=== PATIENT | female | born 1965 | race Caucasian/White ===

== ENCOUNTER → 2021-03-21 14:13 | Outpatient (BNVA) | payer MEDICAID, SELFPAY | PROVIDERS: Family Provider Family Medicine; PCP Family Medicine; Referring Provider Family Medicine; Visit Provider Specialist | DX: M25.519 Pain in unspecified shoulder (principal); S42.021A Displaced fracture of shaft of right clavicle, initial encounter for closed fracture; X58.XXXA Exposure to other specified factors, initial encounter | CPT/HCPCS: 73030 ==

== ENCOUNTER 2021-04-15 13:24 | Outpatient (CLI) | payer MEDICAID, SELFPAY ==
--- NOTE | 2021-04-15 13:45 | MR_ITS ---
WS: [id number] MRI RIGHT SHOULDER NONCONTRAST TECHNIQUE: Sagittal T2, coronal T1, T2 and proton density imaging. Axial gradient PDE imaging. CLINICAL INFORMATION: M25.519 - Pain in unspecified shoulder COMPARISON: None. FINDINGS: Chronic displaced right midshaft clavicular fracture. This has a chronic appearance. Degenerative bon e marrow edema involving the right humerus. Moderate joint effusion. Mild degenerative arthritis AC j oint with moderate downsloping acromion. Loss of the subacromial space with slight subacromial spurri ng. Subacromial and subdeltoid fluid. High-grade full-thickness tear involving the distal supraspinatus with retraction to the level of the glenohumeral joint. This is likely chronic. Chronic thinning of the infraspinatus which is intact di wilfred. Atrophic but intact teres minor. Chronic full-thickness tear of the subscapularis. Advanced degenerative changes glenohumeral joint. D egenerative cystic changes involving the humeral head and greater tuberosity. Biceps tendon is absent from the bicipital groove. Intra-articular biceps tendon not well visualized likely chronically torn . Subcoracoid effusion. Normal bone marrow signal in the glenoid. MR/MR shoulder RT wo con* [id number] IMPRESSION: 1. Chronic mid shaft clavicular fracture as seen on the recent radiograph 2. Full-thickness tears of the supraspinatus and subscapularis. 3. Chronic atrophy of the infraspinatus and teres minor which appear intact. 4. Moderate joint effusion. Subacromial subdeltoid effusion. Subcoracoid bursa l effusion. 5. Advanced degenerative changes glenohumeral joint. Mild degenerative change at the AC joint with loss of the subacromial space. 6. Biceps tendon is absent from the bicipital groove presumably chronically to rn.
== END 2021-04-15 13:25 | disposition home or self-care (01) ==
PROVIDERS: Family Provider Family Medicine; PCP Family Medicine; Visit Provider Specialist
DX: M25.511 Pain in right shoulder (principal); S42.021A Displaced fracture of shaft of right clavicle, initial encounter for closed fracture; M75.101 Unspecified rotator cuff tear or rupture of right shoulder, not specified as traumatic; M25.411 Effusion, right shoulder; X58.XXXA Exposure to other specified factors, initial encounter
CPT/HCPCS: 73221

== ENCOUNTER → 2021-06-16 07:58 | Outpatient (BNVA) | payer MEDICAID, SELFPAY | PROVIDERS: Family Provider Family Medicine; PCP Family Medicine; Visit Provider Specialist | DX: S42.021K Displaced fracture of shaft of right clavicle, subsequent encounter for fracture with nonunion (principal); G56.91 Unspecified mononeuropathy of right upper limb; F17.210 Nicotine dependence, cigarettes, uncomplicated; Y93.9 Activity, unspecified | CPT/HCPCS: 95907; 95910 ==

== ENCOUNTER 2021-08-16 15:56 | Emergency (ER) | payer MEDICAID, SELFPAY ==
[2021-08-16 16:08] VITALS: BP 124/86; PULSE 73; RESP 18; TEMP 36.4; O2SAT 99
[2021-08-16 18:06] VITALS: BP 123/90; PULSE 70; TEMP 36.6; O2SAT 98
--- NOTE | 2021-08-16 18:08 | ED_ITS ---
HPI - Back Pain/Injury General: Chief Complaint: Back Pain/Injury Stated Complaint: LOW BACK PAIN - L HIP AREA Time Seen by Provider: 08/16/21 18:08 History of Present Illness: HPI Narrative: 55-year-old female comes in today with complaints of low back pain. Patient states that she has pain that seems to bounce back and forth between the left side and the right side of her lower back. Patient uses ibuprofen daily to help with her pain. Patient appears w ell. Patient appears in no acute distress. Patient has some allergies to morphine, Novocain, and sulfa drugs. Patient has a history of neuropathy, rotator cuff injury, and some mental health issues including alcohol substance abuse. Patient denies any falls or injuries. Review of Systems General: Reports: 10 or more systems reviewed and unremarkable except in HPI and below Musc: Reports: back pain PFSH ED PFSH: Family History Mother Cancer Father CAD (coronary artery disease) Lung disease Cancer Social History Smoking and tobacco status: current every day smoker cigarettes Quit status (tobacco): not considering quitting Alcohol intake: former Year of sobriety/quit date alcohol: 2020 Desire information about alcohol rehabilitation?: No Physical Exam Const: COMMON NORMALS: no acute distress and patient oriented x3 GENERAL APPEARANCE: cooperative HENMT: COMMON NORMALS: normocephalic HEAD & SCALP: normal to inspection and normocephalic Eye: GENERAL EYE: appearance normal, both eyes and all related structures Neck/C-Spine: COMMON NORMALS: full ROM Chest: COMMONS NORMALS: normal inspection of the chest Resp: COMMON NORMALS: normal respiratory effort EFFORT & INSPECTION: Yes able to speak in complete sentences Cardio: COMMON NORMALS: regular rate and regular rhythm RATE: regular rate RHYTHM: regular rhythm GI: COMMON NORMALS: non-tender : COMMON NORMALS: Yes no CVA tenderness BLADDER/KIDNEY EXAM: Yes no CVA tenderness Back/Pelvis: COMMON NORMALS: no CVA tenderness THORACIC SPINE/UPPER BACK: Yes normal to inspection LUMBAR SPINE/LOWER BACK: Yes paraspinal muscle tenderness Lumbar paraspinal muscle tenderness: bilateral Extremity: COMMON NORMALS: normal to inspection Neuro: COMMON NORMALS: patient oriented x3 and moves all extremities Psych: COMMON NORMALS: mental status grossly normal and cooperative Skin: COMMON NORMALS: no rashes or lesions noted GENERAL SKIN EXAM: no rashes or lesions noted Course Vital Signs: Vital signs: Vital Signs Temperature 97.8 F 08/16/21 18:06 Pulse Rate 70 08/16/21 18:06 Respiratory Rate 18 08/16/21 16:08 Blood Pressure 123/90 08/16/21 18:06 Pulse Oximetry 98 08/16/21 18:06 MDM - Back Pain/Injury MDM Narrative: Medical decision making narrative: 55-year-old female comes in today with complaints of lower back pain. On exam patient has tenderness in the bilateral lower back. No central line lumbar spine pain is noted on palpation. Vital signs are normal. No signs of cauda equina syndrome is noted. Differential diagnosis includes intervertebral disc disease, facet arthropathy, lumbar strain. Reviewed exam with patient with recommendations for treatment. Will place her on 20 mg of prednisone twice a day for the next 3 days. Patient also be placed on some tizanidine to help with muscle spasms and back pain. Patient can use acetaminophen and ibuprofen for further pain control. Recommended patient follow-up with primary care for further instruction. Recommend patient return to the ER for worsening symptoms or new concerns. Discharge Plan Discharge Patient Disposition: Home Clinical Impression: Low back pain Qualifiers: Chronicity: acute Back pain laterality: unspecified Sciatica presence: without sciatica Qualified Code(s): M54.5 - Low back pain Condition: Stable Prescriptions: New tizanidine 4 mg tablet 4 mg PO Q6H PRN (Reason: muscle spasticity and back pain) Qty: 14 RF: 0 prednisone 20 mg tablet 20 mg PO BID 3 Days Qty: 6 RF: 0 No Action Vivitrol 380 mg suspension,extended rel recon IM RF: 0 amitriptyline 10 mg tablet 10 mg PO DAILY RF: 0 donepezil [Aricept] 10 mg tablet 10 mg PO DAILY RF: 0 meloxicam 15 mg tablet 15 mg PO DAILY Qty: 30 RF: 0 citalopram [Celexa] 40 mg tablet 40 mg PO DAILY RF: 0 olanzapine [Zyprexa] 20 mg tablet 20 mg PO DAILY RF: 0 Discharge Orders: Discharge ED (Routine); Ordered 08/16/21 Ordered By: Jonatan Martinez Referrals: Roberto Murillo MD [Primary Care Provider] - Discharge Diet: Usual diet Discharge Activity: Increase activity as tolerated Patient Instructions: Low Back Strain (ED), Opioid Safety Activity Restrictions/Additional Instructions: Take medication as directed. Use tizanidine every 6 hours for muscle spasms and pain. Use prednisone 20 mg twice a day for next 3 days for inflammation. Use acetaminophen for further pain control. Continue with ibuprofen for pain and inflammation. Drink plenty of water with medication. Follow-up with primary care in 3 days for recheck. Return to the ER for new concerns. 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
== END 2021-08-16 18:22 | disposition home or self-care (01) ==
PROVIDERS: Emergency Provider Nurse Practitioner Family; PCP Family Medicine
DX: M54.5 Low back pain (principal); F17.210 Nicotine dependence, cigarettes, uncomplicated
CPT/HCPCS: 99282

== ENCOUNTER → 2021-09-14 08:09 | Outpatient (BNVA) | payer MEDICAID, SELFPAY | PROVIDERS: PCP Family Medicine; Visit Provider Specialist | DX: G56.91 Unspecified mononeuropathy of right upper limb (principal); G56.21 Lesion of ulnar nerve, right upper limb; M19.011 Primary osteoarthritis, right shoulder; F17.210 Nicotine dependence, cigarettes, uncomplicated | CPT/HCPCS: 95886; 95910; 99202 ==

== ENCOUNTER 2021-11-10 12:40 | Outpatient (CLI) | payer MEDICAID, SELFPAY ==
--- NOTE | 2021-11-10 13:00 | MR_ITS ---
WS: [id number] MRI CERVICAL SPINE NONCONTRAST HISTORY: M54.2 - Cervicalgia COMPARISON: None available. Technique: Multiplanar, multisequence noncontrast imaging of the cervical spine. Straightening of the normal cervical lordosis. 2 mm retrolisthesis of C3. No acute marrow edema or fr acture. There is extensive advanced degenerative disc disease and osteophytic ridging from C3 to C7. Signal within the cervical cord is normal. Visualized posterior fossa is unremarkable. Craniocervical junction, C1 and C2 relationship, odontoid process and soft tissues are normal. C2-C3: Proximal LEFT foraminal moderate-sized disc protrusion contacting the exiting nerve roots and displacing the nerve root posteriorly. Moderate LEFT foraminal stenosis. C3-C4: Diffuse osteophytic ridging and annular disc bulging. Asymmetric disc bulging extends greatest to the LEFT. There is mild encroachment upon the ventral thecal sac with mild central and foraminal narrowing. Mild facet arthritis. C4-C5: Marked disc space narrowing with osteophytic ridging and small disc protrusions. Encroachment upon the ventral thecal sac with effacement of CSF. Mild central stenosis. Moderate RIGHT foraminal a nd mild LEFT foraminal stenosis. C5-C6: Annular disc bulging and diffuse osteophytic ridging. Disc osteophyte complexes extend into th e foramina. Mild central and bilateral foraminal stenosis. C6-C7: Mild annular disc bulging and osteophytic ridging. Disc osteophyte complexes extend into the f oramina. Slightly greater involvement on the LEFT. Mild central and bilateral foraminal stenosis. C7-T1: Normal. Additional disc protrusions at T2-3 and T3-4 are present central and in the RIGHT foramina. These lev els are only seen in the sagittal projection. There is probably mild contact on the nerve roots in th e RIGHT foramina. Paraspinal soft tissue are normal. MR/MR cervical spin wo con* [id number] IMPRESSION: 1. Advanced degenerative disc disease and spondylosis throughout the cervical spine from C3-4 to C6-7. 2. Moderate LEFT foraminal stenosis at C2-3 due to disc osteophyte disease. 3. Mild central and bilateral foraminal narrowing at C3-4, C5-6 and C6-7. 4. Moderate RIGHT foraminal stenosis at C4-5 with mild central LEFT foraminal stenosis due to disc and osteophyte disease. 5. Additional central and RIGHT foraminal disc protrusions at T2-3 and T3-4 se en only on the sagittal images.
== END 2021-11-10 12:41 | disposition home or self-care (01) ==
LOC: RADSHAW 12:44
PROVIDERS: PCP Family Medicine; Visit Provider Specialist
DX: M50.31 Other cervical disc degeneration, high cervical region (principal); M47.812 Spondylosis without myelopathy or radiculopathy, cervical region; M48.02 Spinal stenosis, cervical region; M51.24 Other intervertebral disc displacement, thoracic region
CPT/HCPCS: 72141

== ENCOUNTER → 2022-01-02 08:01 | Outpatient (BNVA) | payer MEDICAID, SELFPAY | PROVIDERS: PCP Family Medicine; Referring Provider Nurse Practitioner Family; Visit Provider Specialist | DX: M19.122 Post-traumatic osteoarthritis, left elbow (principal) | CPT/HCPCS: 73080 ==

== ENCOUNTER 2022-02-10 08:44 | Outpatient (CLI) | payer MEDICAID, SELFPAY ==
--- NOTE | 2022-02-10 09:30 | MR_ITS ---
WS: [id number] MRI LEFT ELBOW WITHOUT GADOLINIUM ENHANCEMENT. INDICATION: Elbow pain. History of trauma and fracture. TECHNIQUE: Axial T1 and T2 coronal T1 coronal PD coronal STIR sagittal PD axial 3-D fat sat imaging FINDINGS: History of remote prior postoperative plate and screw fixation involving the proximal ulna and olecranon previously removed. Patient unable to straighten elbow for the examination. Susceptibi lity artifact involving the dorsal elbow soft tissues and proximal radius may be from recent or prior surgery. Diffuse soft tissue edema about the elbow with distention of anterior and posterior fat pad with mode rate joint effusion. Soft tissue ulceration or surgical tract overlying the dorsal elbow with suscept ibility artifact. Associated subcutaneous edema. Small fluid collection along the dorsal lateral elbo w at the level of the proximal radius measuring 1.8 x 0.7 CM. Preservation of the normal T1 bone kristy ow signal. No evidence of acute osteomyelitis. Small amount of edema in the radial head likely reacti ve. Advanced severe narrowing of the elbow joint spaces with hypertrophic changes. Calcified intra-articu lar loose bodies. Deformity and bony hypertrophic overgrowth of the radial head. Advanced joint space narrowing with subchondral sclerosis and marginal osteophytes. No evidence of acute fracture. Findin gs compatible with chronic posttraumatic and advanced arthritic changes. MR/MR elbow LT wo con* [id number] IMPRESSION: 1. Extensive posttraumatic and arthritic changes involving the LEFT elbow desc ribed above. 2. Dorsal elbow soft tissue ulceration or surgical tract with associated edema and susceptibly artifact. 3. Small fluid collection along the dorsal lateral elbow at the level of the p roximal radius measuring 1.8 x 0.7 CM. 4. History of prior hardware removal involving the proximal ulna. Susceptibili ty artifact overlying the ulna and dorsal elbow soft tissues may be due to rece nt surgery and possibly may represent antibiotic beads. 5. Moderate joint effusion with diffuse soft tissue edema and distention of th e anterior and posterior fat pads. Calcified intra-articular loose bodies. 6. No evidence of acute osteomyelitis. Preservation of the normal fatty T1 bon e marrow signal. Small amount of edema in the radial head likely reactive. 7. Subchondral cystic change with sclerosis and marginal osteophytosis involvi ng the elbow joint as described above..
== END 2022-02-10 08:45 | disposition home or self-care (01) ==
LOC: RAD 08:45
PROVIDERS: PCP Family Medicine; Visit Provider Specialist
DX: M25.522 Pain in left elbow (principal); M00.9 Pyogenic arthritis, unspecified; M25.422 Effusion, left elbow
CPT/HCPCS: 73221

== ENCOUNTER 2022-02-24 07:21 | Outpatient (CLI) | payer MEDICAID, SELFPAY ==
--- NOTE | 2022-02-24 07:35 | NM_ITS ---
WS: [id number] NUCLEAR MEDICINE WHOLE BODY BONE SCAN HISTORY: M25.529 - Pain in unspecified elbow COMPARISON: LEFT elbow radiograph 01/02/2022 and RIGHT shoulder radiograph 02/24/2022. TECHNIQUE: The patient was injected with 25.6 mCi of Technetium 99m HDP and serial whole-body scintig asmita have been performed with anterior and posterior images. There is severe uptake at the RIGHT humeral head with extension into the glenoid. There is an abnorma l configuration for the humeral head being medially displaced and high riding. Recent radiographs dem onstrates vertical position of the glenoid with severe degenerative changes and high riding humeral h ead. This is probably all related to advanced osteoarthritis. There is very minimal LEFT AC joint art hritis. There is marked increased uptake noted involving the LEFT elbow. This corresponds to the posttraumati c osteoarthritis which has been recently described by radiograph and MRI. Otherwise very mild increas ed areas of uptake at the patellofemoral junction, ankles and feet from osteoarthritis. Mild bilatera l facet joint arthritis at L5. There is normal soft tissue uptake and renal uptake. Slight increased uptake in the LEFT probable C4 facet joint. NM/NM bone scan whole body* [id number] IMPRESSION: 1. Severe increased uptake at the RIGHT shoulder. Probably an acute inflammato ry osteoarthritis. 2. Marked increased uptake at the LEFT elbow. Patient has known severe posttra umatic osteoarthritis.
--- NOTE | 2022-02-24 10:39 | XR_ITS ---
WS: [id number] Exam: XR shoulder RT min 2V* [id number] Date/Time of Exam: 02/24/2022 10:39 AM Reason For Exam: BONE SCAN COMPARISON Comparison 03/21/2021. Moderately advanced degenerative change of the glenohumeral joint. High riding humeral head is noted. Old nonunion fracture of the right clavicle. XR/XR shoulder RT min 2V* [id number] IMPRESSION: 1. High riding humeral head noted which may indicate long-standing tear of the rotator cuff. 2. Moderately advanced DJD at the glenohumeral joint and the AC joint. 3. Nonunion right clavicle fracture. 4. Humeral head position is abnormal. This exam would not exclude the possibili ty of a posterior dislocation. A Y view of the shoulder might be considered if thought to be clinically warranted.
== END 2022-02-24 07:22 | disposition home or self-care (01) ==
LOC: RAD 07:21
PROVIDERS: PCP Family Medicine; Visit Provider Specialist
DX: M25.529 Pain in unspecified elbow (principal); M00.9 Pyogenic arthritis, unspecified; M19.011 Primary osteoarthritis, right shoulder; S42.001A Fracture of unspecified part of right clavicle, initial encounter for closed fracture; X58.XXXA Exposure to other specified factors, initial encounter
CPT/HCPCS: 73030; 78306; A9561

== ENCOUNTER → 2022-03-27 09:41 | Outpatient (BNVA) | payer MEDICAID, SELFPAY | PROVIDERS: PCP Family Medicine; Visit Provider Specialist | DX: M19.122 Post-traumatic osteoarthritis, left elbow (principal); M25.511 Pain in right shoulder; M25.512 Pain in left shoulder; M00.9 Pyogenic arthritis, unspecified; F17.210 Nicotine dependence, cigarettes, uncomplicated | CPT/HCPCS: 99213 ==